=== PATIENT | male | born 1945 | race Caucasian/White ===

== ENCOUNTER 2016-11-29 15:23 | Inpatient (IN) | payer OTHER ==
[~2016-11-29] VITALS: Ht 177.8 cm; Wt 78.5 kg
--- NOTE | ~2016-11-29 | HC ---
[facility] [place] [address] CONSULTATION Name: RAVINDER CAMACHO Room #: 444-P [facility] IN M.R.#: [id number] Admission: 11/29/16 Attend Phys: Jesse Arriaga MD Discharge: 12/13/16 Date of : 45 Report #: [id number] THIS REPORT FOR: //name// CC: Jesse Arriaga CHIEF COMPLAINT: Urinary retention. HISTORY OF PRESENT ILLNESS: The patient is a very pleasant 71-year-old gentleman who is being seen today at the request Dr. Arriaga for evaluation and management of urinary retention. Specifically, he is hospitalized with pneumonia of the right upper lobe with [id number] hypoxic respiratory failure. He had abdominal discomfort and was noted to have an elevated postvoid residual and was catheterized for 800 mL. He takes Flomax and the dose was doubled 0.8 mg daily. He is voiding at the present time. His history is significant for undergoing radiation for prostate cancer. He is followed by Dr. Carbone. He reports his recent PSA is 0.9. ALLERGIES: INCLUDE IV CONTRAST. ILLNESSES: Chronic obstructive pulmonary disease, oxygen dependent, coronary artery disease with prior angioplasty and stent and peripheral artery disease, prostate cancer. PAST SURGICAL HISTORY: Include left inguinal hernia repair. SOCIAL HISTORY: Lives independently. He quit smoking about a year ago. MEDICATIONS: Refer to the med reconciliation sheet. REVIEW OF SYSTEMS: He denies shortness of breath or chest pain. PHYSICAL EXAMINATION: GENERAL: He is very comfortable gentleman, is seen in bed and responds appropriately to questions. VITAL SIGNS: Temperature is 36.4, pulse 64, respirations 20, blood pressure 116/36. ABDOMEN: Soft, without masses. LABORATORY DATA: White cell count 10.8 thousand, hemoglobin 13.3, hematocrit 40.4, platelets 419,000. Sodium 131, potassium 3.6, chloride 92, CO2 33, BUN 12, creatinine 0.8. IMPRESSION: Urinary retention, which seems to have resolved. PLAN: 1. Continue tamsulosin 0.4 mg [address] [address] CONSULTATION Name: RAVINDER CAMACHO Room #: [address] [place] [address] IN M.R.#: [id number] Admission: 11/29/16 Attend Phys: Jesse Arriaga MD Discharge: 12/13/16 Date of : 45 Report #: [id number] 2. Follow up in the next 2-[address] Carbone. No further intervention is required. <ELECTRONICALLY SIGNED> By: Jesse Lara MD 12/21/16 0658 0708 1003 Jesse Lara MD /nt
--- NOTE | ~2016-11-29 | H ---
[facility] [place] [address] HISTORY AND PHYSICAL Name: RAVINDER CAMACHO Room #: 444-P ADM IN M.R.#: [id number] Admission: 11/29/16 Attend Phys: Jesse Arriaga MD Discharge: Date of : 45 Report #: [id number] THIS REPORT FOR: //name// CC: Jesse Arriaga DATE OF SERVICE: 11/29/2016 CHIEF COMPLAINT: Chest pain and shortness of breath. HISTORY OF PRESENT ILLNESS: The patient is a 71-year-old gentleman with a history of COPD and coronary artery disease who presented to the Emergency Room with shortness of breath. He was just dismissed from [facility] about 10 days to 2 weeks ago for similar symptoms. He tells me at that time his pulmonary disease specialist saw him and did not have any new recommendations, medications or procedures planned. He has had multiple admissions to [facility] over the last 2 years or so related to chest pain and chronic obstructive pulmonary disease. He has had previous cardiac stents and has had several admissions for shortness of breath. He has been followed by the pulmonary team over at the other hospital as well. He has been on chronic oxygen for approximately a year. He said since returning home and titrating down and off steroids, he has become more short of breath. He has had rapid shallow breathing with a nonproductive coarse cough. He was having some pain across his right upper chest with a deep breath and cough as well. PAST MEDICAL HISTORY: COPD, O2 dependent; coronary artery disease with prior history of PTCA and stent and peripheral artery disease. PAST SURGICAL HISTORY: He has had a left inguinal hernia surgery. FAMILY HISTORY: Noncontributory. SOCIAL HISTORY: He lives at home. Prior tobacco history: He says he quit a year ago. No chronic alcohol use. ALLERGIES: IODINE. MEDICATIONS: Spiriva, aspirin 81 mg, Protonix 40 mg, Flomax 0.4 mg, thiamine, tramadol, Ventolin HFA, Plavix 75 mg, Diltiazem CD 120 mg, Cozaar 50 mg and Ativan 0.5 mg. REVIEW OF SYSTEMS: He denies headache, chest pain, shortness of breath, abdominal pain, nausea, vomiting, diarrhea, constipation, dysuria, syncope or fall. PHYSICAL EXAMINATION: VITAL SIGNS: Temperature 36.4, pulse 75, respirations 22, blood pressure 102/46 [facility] [address] [place] [address] HISTORY AND PHYSICAL Name: RAVINDER CAMACHO Room #: 444-P [facility] IN M.R.#: [id number] Admission: 11/29/16 Attend Phys: Jesse Arriaga MD Discharge: Date of : 45 Report #: [id number] and O2 sat 95% on 3-4 liters nasal cannula. GENERAL: He is awake and alert, in no distress, oriented x 4. LUNGS: Distant breath sounds, clear. He has coarse cough. HEART: Regular, no murmur. ABDOMEN: Soft, normoactive bowel sounds. EXTREMITIES: No cyanosis, clubbing or edema. NEUROLOGIC: Motor strength 5/5 throughout. LABORATORY DATA: White count is 34, troponins are negative x 3, sodium 131. Chest x-ray shows bilateral patchy infiltrates. ASSESSMENT: 1. Healthcare-associated pneumonia. 2. Acute exacerbation of chronic obstructive pulmonary disease due to the above. 3. Coronary artery disease. PLAN: Continue antibiotics as is for now. Lovenox for DVT prophylaxis, optimize his hypertension regimen based on low readings currently. I will ask Dr. Rice to see him in consultation; however, as mentioned, he has been worked up and treated at [facility] for both his cardiac and pulmonary status over the last 2 years. <ELECTRONICALLY SIGNED> By: Jesse Arriaga MD 12/01/16 0751 0951 1039 Jesse Arriaga MD /nt
--- NOTE | ~2016-11-29 | D ---
[facility] [place] [address] DISCHARGE SUMMARY Name: RAVINDER CAMACHO Room #: 444-P [facility] IN M.R.#: [id number] Admission: 11/29/16 Attend Phys: Jesse Arriaga MD Discharge: 12/13/16 Date of : 45 Report #: [id number] THIS REPORT FOR: //name// CC: Jesse Arriaga FINAL DIAGNOSES: 1. Healthcare-associated pneumonia. 2. Acute exacerbation of chronic obstructive pulmonary disease. 3. Hypertension. 4. Coronary artery disease. 5. Acute urinary retention. HOSPITAL COURSE: The patient was admitted with shortness of breath. Chest x-ray showed patchy bilateral infiltrates. Dr. Jordan saw him in consultation. He was treated with antibiotics and steroids. He was covered empirically for healthcare pneumonia because he had just been released from [facility] approximately a week ago. No sputum cultures identified the organism. He did have a nares swab and it was positive for MRSA related to multiple hospitalizations over the last 2 years. He had a slow response to treatment. His x-ray was slowly improving. He had an episode of urinary retention. Urology service saw him and recommended doubling Flomax. Fortunately, he was able to improve without the use of an indwelling catheter. PHYSICAL EXAMINATION: VITAL SIGNS: On the day of discharge, his vital signs were stable. LUNGS: Clear. His O2 requirement was back to his 3 liters baseline. HEART: Regular. ABDOMEN: Soft. EXTREMITIES: Showed no edema. DISPOSITION: He will be discharged to home with diet and activity as tolerated. He will continue Augmentin for 5 more days and a slow prednisone taper, initially with 20 mg a day and then decrease to 10 mg a day when he follows up in the office. He will need a followup chest x-ray in 2-4 weeks. <ELECTRONICALLY SIGNED> By: Jesse Arriaga MD 12/14/16 1035 0912 1004 Jesse Arriaga MD /nt
--- NOTE | ~2016-11-29 | EKG ---
[address] [place] [address] ELECTROCARDIOGRAM REPORT Name: RAVINDER CAMACHO Room #: 444-P ADM IN M.R.#: [id number] Admission: 11/29/16 Attend Phys: Jesse Arriaga MD Discharge: Date of : 45 Report #: [id number] THIS REPORT FOR: //name// [facility] ED Test Date: 2016-11-29 Test Time: 15:31:09 Pat Name: RAVINDER CAMACHO Department: Room: 444 Gender: M Access Rn: MZOOK : 1945 Requested By: Sky Franco Order Number: [id number] MD: Keith Sapp Measurements Intervals Bay Rate: 125 P: 77 UT: 134 QRS: -62 QRSD: 89 T: 75 QT: 296 QTc: 427 Interpretive Statements Sinus tachycardia Left anterior fascicular block No previous ECG available for comparison Electronically Signed On 11-30-2016 8:58:29 SQL ARCHITECT by Keith Sapp [email or web address] <ELECTRONICALLY SIGNED> By: Keith Sapp MD, [facility] 11/30/16 0858 1531 1531 Keith Sapp MD, FACC /EPI
--- NOTE | ~2016-11-29 | HC ---
[facility] [place] [address] CONSULTATION Name: RAVINDER CAMACHO Room #: 444-P ADM IN M.R.#: [id number] Admission: 11/29/16 Attend Phys: Juan Arriaga MD Discharge: Date of : 45 Report #: [id number] THIS REPORT FOR: //name// CC: JUAN Arriaga PRIMARY CARE PHYSICIAN: Juan Arriaga M.D. REASON FOR REFERRAL: Pneumonia. HISTORY OF PRESENT ILLNESS: The patient is a 71-year-old white male who presents to the Emergency Room with chest pains and dyspnea. Chest x-ray revealed right upper lobe infiltrates. A pulmonary consultation was requested. The patient is known to this physician from the past. About 10 years ago, he had a spontaneous left-sided pneumothorax. He has known COPD. He has smoked most of his life until recently. The patient was doing well until March of last year. Around that time, he also stopped smoking. He states that he started to have recurrent dyspnea, chest tightness and chest discomfort. 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 Cardiac catheterization including PTCA along with stent was placed. Following this, he continues to have recurrent respiratory symptoms. More recently, he was hospitalized in [facility] for the same symptoms. He states that he was discharged 3 days later, symptoms were no worse but no better. He was sent to a long term facility. There, he was not getting the help he needed and left the facility and went home. Yesterday he noted that his chest tightness and dyspnea had worsened. He also developed chest pain. Otherwise, he denies any recent febrile illness, productive cough or purulent sputum, hemoptysis, nausea, vomiting or diarrhea. Again, chest x-ray revealed right upper lobe infiltrates. PAST MEDICAL HISTORY: Remarkable for a long history of COPD, oxygen dependent; long history of tobacco use, having stopped smoking several months ago; coronary artery disease and peripheral artery disease. PAST SURGICAL HISTORY: Status post left inguinal herniorrhaphy. ALLERGIES: To IODINE. HOME MEDICATIONS: Include Spiriva, Ventolin, aspirin, Protonix, Flomax, tramadol, Plavix, diltiazem, Cozaar and Ativan. [facility] [address] [place] [address] CONSULTATION Name: RAVINDER CAMACHO Room #: 444-P ADM IN M.R.#: [id number] Admission: 11/29/16 Attend Phys: Juan Arriaga MD Discharge: Date of : 45 Report #: [id number] FAMILY HISTORY: Noncontributory. SOCIAL HISTORY: He is single and has a significant other. Tobacco history as mentioned above for having stopped smoking about a year ago. He denies any alcohol use. REVIEW OF SYSTEMS: As mentioned above, otherwise 10-point system review negative. PHYSICAL EXAMINATION: GENERAL: He is awake and alert, in mild distress. VITAL SIGNS: Temperature is 98 degrees Fahrenheit, pulse is 75, respiratory rate is 22, blood pressure 100/46 mmHg and saturation is 95%. HEENT: Normocephalic and atraumatic. NECK: Supple without any lymphadenopathy or thyromegaly. CHEST: Breath sounds are decreased bilaterally with mild expiratory wheezes, rales are heard in the right lung base. CARDIOVASCULAR: Normal S1 and S2. There are no murmurs, rubs or gallop. There is no JVD. There is no carotid bruit. Pulses are 2+/4+ bilaterally. ABDOMEN: Soft and nontender, no organomegaly or masses felt. EXTREMITIES: There is no edema, cyanosis or clubbing. LABORATORY DATA: Chest x-ray as mentioned above showing right upper lobe infiltrates. Troponin is normal. Sodium 131, potassium 4.5, chloride 94, CO2 of 27, BUN is 13, creatinine is 1.3. Liver function test is grossly unremarkable. WBC 35,600 without a significant left shift. Platelets are normal. Albumin 2.7. IMPRESSION: 1. Recurrent dyspnea and chest tightness in this 71-year-old white male. Chest x-ray now shows right upper lobe infiltrates. Pneumonia is suspected, with this recent hospitalization, nosocomial infection is suspected. His symptom is also suggestive of recurrent exacerbation of chronic obstructive pulmonary disease. This may be related to recent smoke cessation. 2. Chronic obstructive pulmonary disease, oxygen dependent, recent recurrent exacerbation. May be related to smoking cessation. Other considerations include allergens and allergies. The patient may have a component of chronic bronchitic type of chronic obstructive pulmonary disease, where he might benefit from phosphodiesterase inhibitors. This should be followed closely as an outpatient and consider therapeutic trial. 3. Tobacco abuse, having stopped smoking about a year ago. 4. Hyponatremia related to pulmonary disease. 5. Protein calorie malnutrition, severe, with an albumin of 2.7. 6. Leukocytosis may be due to recent illness, presumably related to corticosteroids. [facility] [address] [place] [address] CONSULTATION Name: RAVINDER CAMACHO Room #: 4- ADM IN M.R.#: [id number] Admission: 11/29/16 Attend Phys: Juan Arriaga MD Discharge: Date of : 45 Report #: [id number] RECOMMENDATIONS: Agree with broad spectrum antibiotics to cover for nosocomial infection. We will continue bronchodilator therapy along with corticosteroids. DVT and GI prophylaxis will be addressed. Followup chest x-ray in 2-4 weeks to assure clearance of the infiltrates. The patient should also be followed closely regarding his frequent exacerbation of COPD. Further workup may be necessary. Thank you for this consultation. <ELECTRONICALLY SIGNED> By: Shree Jordan MD 12/10/16 1634 1253 1722 Shree Jordan MD /nt
[~2016-11-29 15:23] MED LIST: AMLODIPINE PO; ASPIRIN PO; ASPIRIN325 PO; AVELOX 400 MG400 MG PO; COMBIVENT INH; LOPRESSOR100 MG PO; MUCINEX TA600 MG/TA1 PO; PREDNISONE PO; SPIRIVA INH; ZESTRIL10 MG PO
[2016-11-29 15:25] VITALS: BP 144/86
[2016-11-29 16:05] LABS: HEMOGLOBIN 13.8 gm/dL (14.0-18.0); MANUAL DIFF YES; MCH 30.2 pg (26.0-34.0); MCHC 33.7 % (28.0-37.0); MCV 89.6 fL (80.0-100.0); PLATELET COUNT 307 thou/uL (150-400); RBC 4.58 mil/uL (4.50-6.00); RDW 13.7 % (10.5-14.5); WBC 35.6 thou/uL (4.0-11.0)
[2016-11-29 16:12] LABS: ANION GAP 10 mmol/L (7-16); BUN 13 mg/dL (7-18); CALCIUM 8.9 mg/dL (8.5-10.1); CHLORIDE 94 mmol/L (98-107); CO2 27 mmol/L (21-32); CREATININE 1.3 mg/dL (0.6-1.3); GLUCOSE 151 mg/dL (70-99); POTASSIUM 4.5 mmol/L (3.5-5.1); SODIUM 131 mmol/L (136-145)
[2016-11-29 16:16] LABS: INR 1.2
[2016-11-29 16:21] LABS: ABSOLUTE NEUTROPHILS 32.4 thou/uL (1.4-8.2); TOTAL CELL COUNT 100
[2016-11-29 16:23] LABS: ALBUMIN 2.7 g/dL (3.4-5.0); ALKALINE PHOSPHATASE 118 U/L (46-116); SGOT 24 U/L (15-37); SGPT 44 U/L (30-65); TROPONIN-I < 0.04 ng/mL (<0.04-0.07)
[2016-11-29] MEDS ORDERED: PROTONIX40 M1 PO (17:11)
[2016-11-29] MEDS ORDERED: TRAMADOL 50 MG50 MG PO (17:12)
[2016-11-29] MEDS ORDERED: FLOMAX0.4 MG PO (17:12)
[2016-11-29] MEDS ORDERED: VITAMIN B-1100 M1 PO (17:12)
[2016-11-29] MEDS ORDERED: PLAVIX 75 MG TA75 M1 PO (17:13)
[2016-11-29] MEDS ORDERED: VENTOLIN HFA 1818 GM INH (17:13)
[2016-11-29] MEDS ORDERED: CARDIZEM CD120 MG PO (17:13)
[2016-11-29] MEDS ORDERED: COZAAR 50 MG TA50 M2 PO (17:14)
[2016-11-29] MEDS ORDERED: ATIVAN0.5 MG PO (17:14)
[2016-11-29 18:12] VITALS: BP 127/73
[2016-11-29 18:30] VITALS: BP 142/65
[2016-11-29 20:25] VITALS: BP 128/68
[2016-11-30] VITALS: BP 111/49
[2016-11-30 03:40] VITALS: BP 122/55
[2016-11-30 06:06] LABS: HEMATOCRIT 39.1 % (42.0-52.0); HEMOGLOBIN 12.6 gm/dL (14.0-18.0); MCH 29.5 pg (26.0-34.0); MCHC 32.3 % (28.0-37.0); MCV 91.4 fL (80.0-100.0); PLATELET COUNT 316 thou/uL (150-400); RBC 4.28 mil/uL (4.50-6.00); RDW 13.8 % (10.5-14.5); WBC 34.9 thou/uL (4.0-11.0)
[2016-11-30 06:13] LABS: MANUAL DIFF YES
[2016-11-30 08:00] VITALS: BP 102/46
[2016-11-30 08:00] LABS: ABSOLUTE NEUTROPHILS 34.6 thou/uL (1.4-8.2); TOTAL CELL COUNT 100
[2016-11-30 08:01] LABS: TOXIC GRANULATION SLIGHT
[2016-11-30 12:00] VITALS: BP 118/49
[2016-11-30 16:00] VITALS: BP 125/57
[2016-11-30 20:22] VITALS: BP 127/65
[2016-12-01 04:10] VITALS: BP 116/58
[2016-12-01 07:46] VITALS: BP 144/75
[2016-12-01 07:48] LABS: HEMATOCRIT 35.2 % (42.0-52.0); HEMOGLOBIN 11.7 gm/dL (14.0-18.0); MANUAL DIFF YES; MCH 29.9 pg (26.0-34.0); MCHC 33.1 % (28.0-37.0); MCV 90.4 fL (80.0-100.0); PLATELET COUNT 319 thou/uL (150-400); RDW 13.6 % (10.5-14.5); WBC 27.9 thou/uL (4.0-11.0)
[2016-12-01 07:57] LABS: CALCIUM 8.9 mg/dL (8.5-10.1); CREATININE 0.8 mg/dL (0.6-1.3); POTASSIUM 4.2 mmol/L (3.5-5.1)
[2016-12-01 08:07] LABS: ABSOLUTE NEUTROPHILS 26.8 thou/uL (1.4-8.2); TOTAL CELL COUNT 100
[2016-12-01 11:42] VITALS: BP 152/67
[2016-12-01 15:29] VITALS: BP 143/57
[2016-12-01 19:21] VITALS: BP 119/52
[2016-12-02 04:35] VITALS: BP 142/67
[2016-12-02 05:31] LABS: HEMATOCRIT 34.6 % (42.0-52.0); HEMOGLOBIN 11.4 gm/dL (14.0-18.0); MCH 29.9 pg (26.0-34.0); MCHC 32.9 % (28.0-37.0); MCV 90.8 fL (80.0-100.0); PLATELET COUNT 309 thou/uL (150-400); RBC 3.81 mil/uL (4.50-6.00); RDW 13.8 % (10.5-14.5); WBC 19.6 thou/uL (4.0-11.0)
[2016-12-02 05:52] LABS: MANUAL DIFF YES
[2016-12-02 05:53] LABS: CALCIUM 8.5 mg/dL (8.5-10.1); CREATININE 0.8 mg/dL (0.6-1.3)
[2016-12-02 07:36] LABS: ABSOLUTE NEUTROPHILS 18.8 thou/uL (1.4-8.2); TOTAL CELL COUNT 100
[2016-12-02 07:37] LABS: ANISOCYTOSIS SLIGHT
[2016-12-02 09:07] VITALS: BP 160/78
[2016-12-02 12:03] VITALS: BP 157/77
[2016-12-02 16:35] VITALS: BP 170/81
[2016-12-02 20:22] VITALS: BP 151/70
[2016-12-03 04:48] VITALS: BP 162/65
[2016-12-03 08:34] VITALS: BP 163/68
[2016-12-03 12:35] VITALS: BP 147/74
[2016-12-03 16:56] VITALS: BP 153/77
[2016-12-03 20:22] VITALS: BP 171/81
[2016-12-04 04:12] VITALS: BP 165/80
[2016-12-04 07:26] LABS: HEMOGLOBIN 12.5 gm/dL (14.0-18.0); MCH 29.8 pg (26.0-34.0); MCHC 32.8 % (28.0-37.0); MCV 90.8 fL (80.0-100.0); RBC 4.19 mil/uL (4.50-6.00); RDW 13.7 % (10.5-14.5); WBC 14.1 thou/uL (4.0-11.0)
[2016-12-04 07:35] LABS: CALCIUM 8.4 mg/dL (8.5-10.1); CREATININE 0.9 mg/dL (0.6-1.3)
[2016-12-04 08:00] VITALS: BP 160/79
[2016-12-04 16:00] VITALS: BP 169/86
[2016-12-04 20:22] VITALS: BP 150/71
[2016-12-05 05:15] VITALS: BP 177/72
[2016-12-05 08:40] VITALS: BP 163/80
[2016-12-05 11:42] LABS: HEMATOCRIT 40.2 % (42.0-52.0); HEMOGLOBIN 13.4 gm/dL (14.0-18.0); MCH 30.1 pg (26.0-34.0); MCHC 33.4 % (28.0-37.0); MCV 90.2 fL (80.0-100.0); RBC 4.46 mil/uL (4.50-6.00); RDW 13.5 % (10.5-14.5); WBC 19.1 thou/uL (4.0-11.0)
[2016-12-05 11:51] LABS: CALCIUM 8.3 mg/dL (8.5-10.1); CREATININE 0.9 mg/dL (0.6-1.3); POTASSIUM 3.8 mmol/L (3.5-5.1)
[2016-12-05 12:17] VITALS: BP 191/90
[2016-12-05 17:46] VITALS: BP 158/82
[2016-12-05 20:10] VITALS: BP 138/54
[2016-12-06 05:10] VITALS: BP 150/76
[2016-12-06 08:55] VITALS: BP 138/87
[2016-12-06 12:39] VITALS: BP 141/75
[2016-12-06 17:14] VITALS: BP 165/87
[2016-12-06 20:40] VITALS: BP 154/61
[2016-12-07 05:30] VITALS: BP 185/80
[2016-12-07 09:55] VITALS: BP 126/66
[2016-12-07 12:40] VITALS: BP 170/80
[2016-12-07 15:59] VITALS: BP 186/82
[2016-12-07 20:00] VITALS: BP 163/85
[2016-12-08] VITALS (7 sets, daily range): BP systolic 138–169; BP diastolic 76–86
[2016-12-09 03:20] VITALS: BP 160/94
[2016-12-09 04:42] LABS: HEMATOCRIT 39.2 % (42.0-52.0); HEMOGLOBIN 12.7 gm/dL (14.0-18.0); MCH 29.7 pg (26.0-34.0); MCHC 32.5 % (28.0-37.0); MCV 91.5 fL (80.0-100.0); PLATELET COUNT 429 thou/uL (150-400); RBC 4.29 mil/uL (4.50-6.00); WBC 17.2 thou/uL (4.0-11.0)
[2016-12-09 04:44] LABS: MANUAL DIFF YES
[2016-12-09 04:52] LABS: CALCIUM 8.4 mg/dL (8.5-10.1); CREATININE 0.8 mg/dL (0.6-1.3); POTASSIUM 3.7 mmol/L (3.5-5.1)
[2016-12-09 07:17] LABS: ABSOLUTE NEUTROPHILS 16.2 thou/uL (1.4-8.2); ANISOCYTOSIS SLIGHT; TOTAL CELL COUNT 100
[2016-12-09 08:09] VITALS: BP 148/86
[2016-12-09 10:20] VITALS: BP 148/86
[2016-12-09 11:52] VITALS: BP 160/85
[2016-12-09 16:19] VITALS: BP 155/78
[2016-12-09 20:03] VITALS: BP 148/77
[2016-12-09 21:28] LABS: URINE BILIRUBIN NEGATIVE (Negative); URINE BLOOD 3+ (Negative); URINE COLOR YELLOW; URINE GLUCOSE-RANDOM* NEGATIVE (Negative); URINE KETONES NEGATIVE (Negative); URINE LEUKOCYTES-REFLEX TRACE (Negative); URINE PROTEIN (DIPSTICK) NEGATIVE (Negative); URINE SPECIFIC GRAVITY 1.015 (1.003-1.035); URINE UROBILINOGEN 0.2 E.U./dl (0.2-1.0)
[2016-12-09 21:36] LABS: CASTS None Seen /LPF (None Seen); CRYSTALS None Seen /LPF (None Seen); SQUAMOUS None Seen /LPF (0-3); URINE WBC-REFLEX 0-5 Rare /HPF (0-5)
[2016-12-09 21:37] LABS: URINE RBC >20 Many /HPF (0-2)
[2016-12-10 04:59] VITALS: BP 116/36
[2016-12-10 05:41] LABS: ABSOLUTE NEUTROPHILS 8.9 thou/uL (1.4-8.2); BASOPHILS 0.4 % (0.0-2.0); EOSINOPHILS 2.2 % (0.0-3.0); HEMATOCRIT 40.4 % (42.0-52.0); HEMOGLOBIN 13.3 gm/dL (14.0-18.0); LYMPHOCYTES 9.6 % (24.0-44.0); MCH 29.9 pg (26.0-34.0); MCHC 32.9 % (28.0-37.0); MCV 90.8 fL (80.0-100.0); MONOCYTES 5.7 % (1.0-8.0); PLATELET COUNT 419 thou/uL (150-400); POLYS 82.1 % (36.0-66.0); RBC 4.45 mil/uL (4.50-6.00); RDW 14.2 % (10.5-14.5); WBC 10.8 thou/uL (4.0-11.0)
[2016-12-10 05:51] LABS: MANUAL DIFF NO
[2016-12-10 06:27] LABS: CALCIUM 8.2 mg/dL (8.5-10.1); CREATININE 0.8 mg/dL (0.6-1.3); POTASSIUM 3.6 mmol/L (3.5-5.1)
[2016-12-10 09:00] VITALS: BP 141/64
[2016-12-10 16:54] VITALS: BP 133/61
[2016-12-10 22:31] VITALS: BP 147/62
[2016-12-11 05:31] VITALS: BP 141/62
[2016-12-11 09:39] VITALS: BP 144/77
[2016-12-11 12:33] VITALS: BP 150/75
[2016-12-11 16:37] VITALS: BP 131/79
[2016-12-11 21:43] VITALS: BP 135/73
[2016-12-12 04:05] LABS: HEMATOCRIT 35.7 % (42.0-52.0); HEMOGLOBIN 11.8 gm/dL (14.0-18.0); MCH 30.2 pg (26.0-34.0); MCHC 33.1 % (28.0-37.0); MCV 91.1 fL (80.0-100.0); RBC 3.91 mil/uL (4.50-6.00); RDW 14.1 % (10.5-14.5); WBC 10.5 thou/uL (4.0-11.0)
[2016-12-12 04:18] LABS: CREATININE 0.7 mg/dL (0.6-1.3); POTASSIUM 3.5 mmol/L (3.5-5.1)
[2016-12-12] MEDS ORDERED: AUGMENTIN 875-1 EACH PO (07:58)
[2016-12-12] MEDS ORDERED: PREDNISONE 10 M10 MG PO (08:00)
[2016-12-12] MEDS ORDERED: DUONEB 2.5-0.5 M3 ML INH (08:01)
[2016-12-12 08:11] VITALS: BP 148/86
[2016-12-12 09:22] VITALS: BP 169/86
[2016-12-12 17:02] VITALS: BP 148/76
[2016-12-12 20:30] VITALS: BP 189/82
[2016-12-13 04:00] VITALS: BP 136/64
[2016-12-13 08:00] VITALS: BP 168/71
[2016-12-13 12:00] VITALS: BP 141/67
== END 2016-12-13 14:30 | disposition home health service (06) | DRG 177 ==
LOC: ER 15:23 → 4S 17:08 → EROBS 17:08 → 4S 18:13
PROVIDERS: Internal Medicine; Internal Medicine Geriatric Medicine; Internal Medicine Pulmonary Disease; Physician Assistant
DX: J15.6 Pneumonia due to other Gram-negative bacteria (principal); E43 Unspecified severe protein-calorie malnutrition; J96.21 Acute and chronic respiratory failure with hypoxia; E87.1 Hypo-osmolality and hyponatremia; J44.1 Chronic obstructive pulmonary disease with (acute) exacerbation; I10 Essential (primary) hypertension; I73.9 Peripheral vascular disease, unspecified; F17.210 Nicotine dependence, cigarettes, uncomplicated; D72.829 Elevated white blood cell count, unspecified; R33.9 Retention of urine, unspecified; I25.10 Atherosclerotic heart disease of native coronary artery without angina pectoris; Z95.5 Presence of coronary angioplasty implant and graft; Z79.899 Other long term (current) drug therapy; Z91.041 Radiographic dye allergy status; Z85.46 Personal history of malignant neoplasm of prostate; Z68.24 Body mass index [BMI] 24.0-24.9, adult
CPT/HCPCS: 10100